=== PATIENT | female | born 1995 | race Caucasian/White ===

== ENCOUNTER 2021-05-08 08:00 | Outpatient (CLI) | payer OTHER | END 2021-05-08 23:59 | disposition home or self-care (01) | LOC: LAB.S 08:00 | PROVIDERS: ATTEND Physician Assistant Medical | DX: R30.0 Dysuria (principal) | CPT/HCPCS: 87086 ==

== ENCOUNTER 2021-12-21 07:45 | Emergency (ER) | payer OTHER ==
--- NOTE | 2021-12-21 08:08 | ED Physician Documentation ---
PD HPI LOWER EXT INJURY - Stated complaint Stated Complaint: C+ FEMALE /R LEG REDNESS - Chief complaint Chief Complaint: General - History obtained from History obtained from: Patient - History of Present Illness PD HPI LOW EXT INJURY LOCATION: Right, Lower leg, Thigh Type of injury: No: Fall, Twist Where injury occurred: Home Timing - onset: Today, Last night Timing - duration: Days (1) Timing - details: Abrupt onset, Now resolved (improved this morning) Worsened by: Palpating Associated symptoms: Discolored (she noted an area of tenderness and redness anteromedial right lower thigh last night. Recent Dx of COVID 4 days ago, with some cough/aches. ALso having heavy menses the past couple days, and has had heavier ones since IUD placed 3 months ago.). No: Weakness, Numbness Similar symptoms before: Has not had sx before Recently seen: Clinic (had IUD bare copper placed Aug 2021.), Other (did home test COVID and was positive 3 days ago.) Review of Systems Constitutional: reports: Chills, Myalgias. denies: Fever Nose: reports: Congestion Throat: denies: Sore throat Cardiac: reports: Chest pain / pressure (brief sharp pains several times left anterior chest in past day. Not consistent. Not reproduced with deep breathing.) Respiratory: denies: Dyspnea, Cough GI: denies: Abdominal Pain, Nausea, Vomiting : reports: Vaginal bleeding (heavier than prior to IUD, and with some clots last night.). denies: Dysuria Skin: reports: Rash (red/tender patch right anteromedial thigh last night. Improved this morning.) Neurologic: reports: Generalized weakness. denies: Near syncope PD PAST MEDICAL HISTORY - Past Medical History Cardiovascular: None Respiratory: None Neuro: None Endocrine/Autoimmune: None - Present Medications Home Medications: Ambulatory Orders Medication Instructions Recorded Confirmed Albuterol Sulf [Ventolin Hfa 1 - 2 puffs INH Q4HR PRN #1 inhaler 12/21/21 Inhaler] - Allergies Allergies/Adverse Reactions: Allergies Allergy/AdvReac Type Severity Reaction Status Date / Time Sulfa (Sulfonamide Allergy Rash Verified 12/21/21 07:57 Antibiotics) PD ED PE NORMAL - Vitals Vital signs reviewed: Yes - General General: Alert and oriented X 3, No acute distress, Well developed/nourished - Neck Neck: Supple, no meningeal sign, No adenopathy - Cardiac Cardiac: RRR, No murmur - Respiratory Respiratory: No respiratory distress, Clear bilaterally, Other (no chestwall tenderness) - Abdomen Abdomen: Normal bowel sounds, Soft, Non distended, No organomegaly - Female Female : Deferred - Back Back: No CVA TTP - Derm Derm: Normal color, Warm and dry - Extremities Extremities: No tenderness to palpate, Normal ROM s pain, No edema, No calf tenderness / cord (no calf tender but has some medial lower thigh withour rash/sores/redness noted at this time. ) - Neuro Neuro: Alert and oriented X 3, No motor deficit, No sensory deficit Results - Vitals Vitals: Vital Signs - 24 hr 12/21/21 12/21/21 12/21/21 07:52 08:42 10:37 Temperature 36.4 C L 36.5 C Heart Rate 56 L 82 80 Respiratory 16 19 16 Rate Blood Pressure 134/76 H 130/70 O2 Saturation 100 100 Oxygen O2 Source Room air - Labs Labs: Laboratory Tests 12/21/21 12/21/21 08:55 08:55 WBC 6.2 RBC 4.13 L Hgb 12.3 Hct 37.1 MCV 89.8 MCH 29.8 MCHC 33.2 RDW 13.9 Plt Count 276 MPV 11.2 H Neut # (Auto) 4.5 Lymph # (Auto) 1.2 L Howell # (Auto) 0.4 Eos # (Auto) 0.1 Baso # (Auto) 0.0 Absolute Nucleated RBC 0.00 Nucleated RBC % 0.0 Sodium 137 Potassium 3.7 Chloride 100 L Carbon Dioxide 26 Anion Gap 11.0 BUN 7 Creatinine 0.4 Estimated GFR (MDRD) 194 Glucose 90 Calcium 9.4 Iron 31 TIBC 469 H % Saturation 7 L Transferrin 335 Total Bilirubin 0.8 AST 21 ALT 16 Alkaline Phosphatase 52 Total Protein 7.6 Albumin 4.6 Globulin 3.0 Albumin/Globulin Ratio 1.5 Lipase 40 - Rads (name of study) duplex right leg Radiology: Prelim report reviewed (no DVT.), See rad report PD MEDICAL DECISION MAKING - ED course Complexity details: reviewed results (no DVT. H/H is good but iron level low. HEavy periods probably reasonable for first few months after IUD. ), considered differential, d/w patient Departure - Departure Disposition: 01 Home, Self Care Clinical Impression: COVID-19, Iron deficiency Chest pain Qualifiers: Chest pain type: intercostal pain Qualified Code(s): R07.82 - Intercostal pain Heavy periods Qualifiers: Menorrhagia type: with regular cycle Qualified Code(s): N92.0 - Excessive and frequent menstruation with regular cycle Leg pain Qualifiers: Laterality: right Qualified Code(s): M79.604 - Pain in right leg Condition: Stable Record reviewed to determine appropriate education?: Yes Prescriptions: Albuterol Sulf [Ventolin Hfa Inhaler] 1 - 2 puffs INH Q4HR PRN #1 inhaler PRN Reason: Shortness Of Air/Wheezing Comments: Your chest x-ray is clear without any signs of pneumonia/collapsed lung/fluid around the lung. The pains in the chest likely are some inflammatory changes with the COVID infection. You can use some Tylenol or ibuprofen if needed for pains. Your blood count is normal without any anemia. Your iron level is low normal (at the low end of the normal range). It would make sense to have an iron supplement or iron rich foods to help improve on that. No signs of blood clots on the ultrasound for your leg. Unclear what the cause of the redness and swelling were earlier. For your breathing, you could try the albuterol inhaler 2 puffs 4 times a day to help improve airflow. I transmitted prescription [facility] that to [facility] in [place]. Discharge Date/Time: 12/21/21 10:37
[2021-12-21] MEDS ORDERED: ALBUTEROL 1 PUFF INH STA (08:42)
[2021-12-21 09:01] LABS: BASOPHILS % (AUTO) 0.6 %; EOSINOPHILS # (AUTO) 0.1 10^3/uL (0.0-0.7); HCT - HEMATOCRIT 37.1 % (37.0-47.0); HGB - HEMOGLOBIN 12.3 g/dL (12.0-16.0); LYMPHOCYTES # (AUTO) 1.2 10^3/uL (1.5-3.5); LYMPHOCYTES % (AUTO) 18.8 %; MEAN CORPUSCULAR HEMOGLOBIN 29.8 pg (27.0-31.0); MEAN CORPUSCULAR HGB CONC 33.2 g/dL (32.0-36.0); MEAN CORPUSCULAR VOLUME 89.8 fL (81.0-99.0); MEAN PLATELET VOLUME 11.2 fL (7.9-10.8); MONOCYTES # (AUTO) 0.4 10^3/uL (0.0-1.0); NEUTROPHILS # (AUTO) 4.5 10^3/uL (1.5-6.6); NEUTROPHILS % (AUTO) 72.4 %; PLT - PLATELET COUNT 276 10^3/uL (130-450); RED BLOOD COUNT 4.13 10^6/uL (4.20-5.40); RED CELL DISTRIBUTION WIDTH 13.9 % (12.0-15.0); WHITE BLOOD COUNT 6.2 x10^3/uL (4.8-10.8)
--- NOTE | 2021-12-21 09:06 | XRAY Report ---
PROCEDURE: Chest 1 View X-Ray INDICATIONS: left chest pain; COVID with cough TECHNIQUE: One view of the chest was acquired. COMPARISON: None FINDINGS: Surgical changes and devices: None. Lungs and pleura: No pleural effusions or pneumothorax. Lungs are clear. Mediastinum: Mediastinal contours appear normal. Heart size is normal. Bones and chest wall: No suspicious bony lesions. Overlying soft tissues appear unremarkable. IMPRESSION: No acute pulmonary process. Reviewed by: Geri Almaguer MD on 12/21/2021 9:05 AM PDT Approved by: Geri Almaguer MD on 12/21/2021 9:05 AM PDT Station ID: [id number]
--- NOTE | 2021-12-21 09:52 | Ultrasound Report ---
PROCEDURE: Duplex Ext Veins Right INDICATIONS: right thigh/calf aching TECHNIQUE: Real-time imaging, as well as color and pulse Doppler interrogation, were performed of the lower extr emity deep veins from the inguinal ligament to the popliteal fossa. COMPARISON: None. FINDINGS: The deep veins are normally compressible, and free of intraluminal thrombus. Color and pu lse Doppler demonstrate normal phasic intraluminal flow. There is normal augmentation response to di stal compression maneuver. IMPRESSION: No evidence right lower extremity DVT. Reviewed by: Nathan Limon MD on 12/21/2021 9:50 AM PDT Approved by: Nathan Limon MD on 12/21/2021 9:50 AM PDT Station ID: [id number]
[2021-12-21 09:58] LABS: ALBUMIN 4.6 g/dL (3.2-5.5); ALBUMIN/GLOBULIN RATIO 1.5 (1.0-2.2); BILIRUBIN,TOTAL 0.8 mg/dL (0.2-1.0); CALCIUM 9.4 mg/dL (8.5-10.3); CREATININE 0.4 mg/dL (0.4-1.0); POTASSIUM 3.7 mmol/L (3.5-5.0); TOTAL PROTEIN 7.6 g/dL (6.7-8.2)
[2021-12-21 10:38] VITALS: BP 130/70
== END 2021-12-21 10:37 | disposition home or self-care (01) ==
LOC: ED 07:45
DX: U07.1 COVID-19 (principal); E61.1 Iron deficiency; M79.604 Pain in right leg; N92.0 Excessive and frequent menstruation with regular cycle; Z97.5 Presence of (intrauterine) contraceptive device
CPT/HCPCS: 36415; 80053; 82306; 83540; 83690; 84466; 85025; 94640; 94664; 99282; 99284